=== PATIENT | female | born 2000 | race Caucasian/White ===

== ENCOUNTER 2020-12-29 13:32 | Emergency (ER) | payer BC, SELFPAY ==
--- NOTE | 2020-12-29 13:41 | ED.FEMALEGU ---
HPI - Female Genitourinary General Chief complaint: Urogenital-Female Stated complaint: sharp pains on lower right and painful urination Time Seen by Provider: 12/29/20 13:43 Source: patient and RN notes reviewed Mode of arrival: ambulatory Limitations: no limitations History of Present Illness HPI Narrative: 20-year-old female presents with concern for suprapubic discomfort, frequent urination, intermittent difficulty urinating. She reports symptoms have been present for 1 week. She denies nausea, vomiting, burning with urination, urgency, fever, changes in appetite, abnormal vaginal discharge or bleeding, pain with sex. She reports her menstrual period is due soon , she is uncertain of dates. Reports there is a chance she could be , denies any concern for STDs. Reports she had a medical 6 months ago, had a follow-up which was normal. MD elicited complaint: UTI Related Data Home Medications Medication Instructions Recorded Confirmed [id number] tablet PO 12/29/20 [] Allergies Allergy/AdvReac Type Severity Reaction Status Date / Time anesthesia AdvReac Mild Nausea and Uncoded 03/24/19 20:10 Vomiting Review of Systems Review of Systems: Narrative: CONSTITUTIONAL: Denies malaise, chills, sweats, or fever. CARDIOVASCULAR: Denies chest pain, palpitations, or edema. RESPIRATORY: Denies cough or dyspnea. GASTROINTESTINAL: Denies abdominal pain, nausea, vomiting, diarrhea, bloody, or mucous stools. GENITOURINARY: Denies dysuria or hematuria. Reports suprapubic discomfort, urine frequency, difficulty urinating SKIN: Denies rash or itching. MUSCULOSKELETAL: Denies back pain, joint pain, or myalgia. All systems reviewed & are unremarkable except as noted in HPI and below PMFSH Comments At time of signature, agree with nursing past medical, surgical, social and family history. There is no relevant family history pertinent to the presenting complaint Exam Narrative: Exam Narrative: GENERAL: Well-appearing, well-nourished, and in no acute distress. HEAD: Normocephalic. EYES: PERRLA, conjunctivae clear. NECK: Supple. No lymphadenopathy CHEST: Clear to auscultation. No respiratory distress. HEART: Regular rate and rhythm. ABDOMEN: Soft, nontender upon palpation, nondistended, normal active bowel sounds, no palpable or pulsatile masses, no guarding. No CVA tenderness SKIN: Warm, dry, no rash. NEURO: Alert and oriented x3. PSYCH: Normal mood and affect Course Course Emergency Course: Patient is aware of diagnosis, understands and agrees to treatment plan. Anticipatory guidance given. Patient agrees to follow-up as directed and is aware of reasons to seek care at the emergency department. Portions of this record may have been created with voice recognition software Vital Signs Vital signs: Vital Signs Temperature 98.6 F 12/29/20 13:44 Pulse Rate 105 H 12/29/20 13:44 Respiratory Rate 18 12/29/20 13:44 Blood Pressure 132/70 12/29/20 13:44 Pulse Oximetry 100 12/29/20 13:44 Temperature 98.6 F 12/29/20 13:44 Pulse Rate 105 H 12/29/20 13:44 Respiratory Rate 18 12/29/20 13:44 Blood Pressure 132/70 12/29/20 13:44 Pulse Oximetry 100 12/29/20 13:44 Reviewed. MDM - Female Genitourinary MDM Narrative Medical decision making narrative: Exam findings and UA show no acute concerns or changes; patient is non-toxic appearing and is in no distress. Patient is appropriate for outpatient treatment and follow-up. Differential Diagnosis Differential diagnosis: Likely urinary tract infection, trichomoniasis, cervicitis, vaginitis, dysmenorrhea and other (Mittelschmerz, acute abdomen, endometriosis) Lab Data Labs: Urine Glucose Negative Reference Range: Negative Urine Bilirubin Negative Reference Range: Negative Urine Ketone
[2020-12-29 13:44] VITALS: BP 132/70; PULSE 105; RESP 18; TEMP 37; O2SAT 100
== END 2020-12-29 14:16 | disposition home or self-care (01) ==
PROVIDERS: Emergency Provider Nurse Practitioner
DX: R10.30 Lower abdominal pain, unspecified (principal)
CPT/HCPCS: 81003; 81025; 87086; 99213; G0463

== ENCOUNTER 2021-06-14 13:27 | Emergency (ER) | payer BC, SELFPAY ==
[2021-06-14 13:34] VITALS: BP 123/78; PULSE 98; RESP 16; TEMP 36.6; O2SAT 99
--- NOTE | 2021-06-14 13:34 | ED.GENADULT ---
HPI - General Adult General Chief complaint: Urogenital-Female Stated complaint: Left Breast is swollen Time Seen by Provider: 06/14/21 13:38 Source: patient and RN notes reviewed Mode of arrival: ambulatory Limitations: no limitations History of Present Illness HPI narrative: 21-year-old female presents concern for swelling and tenderness in the left breast. Reports she is currently breast-feeding her child. Reports symptoms started 2 days ago, she has tried warm compresses without relief. She reports general malaise. Denies fever or body aches. Denies purulent drainage from the breast. complaint: Swollen breast Related Data Home Medications Medication Instructions Recorded Confirmed [id number]-fal-[id number]-FA 1 tablet PO DAILY 12/29/20 06/14/21 [] Allergies Allergy/AdvReac Type Severity Reaction Status Date / Time anesthesia AdvReac Mild Nausea and Uncoded 06/14/21 13:40 Vomiting Review of Systems Review of Systems: CONSTITUTIONAL: Reports malaise. Denies chills, sweats, or fever. SKIN: Reports warm, tender skin in the left breast MUSCULOSKELETAL: Denies myalgia. NEUROLOGIC: Reports headache. All systems reviewed & are unremarkable except as noted in HPI and below PMFSH Comments At time of signature, agree with nursing past medical, surgical, social and family history. There is no relevant family history pertinent to the presenting complaint Exam Narrative: GENERAL: Well-appearing, well-nourished, and in no acute distress. HEAD: Normocephalic EYES: PERRLA, conjunctivae clear ENT: Mucous membranes moist. NECK: Supple. No lymphadenopathy. CHEST: No respiratory distress. Speaks in full sentences. HEART: Regular rate and rhythm. SKIN: Warm, dry, no rash. Left breast has 7 cm area of erythema, warmth, induration not involving the nipple NEURO: Alert and oriented x3. PSYCH: Normal mood and affect Course Course Emergency Course: Patient is aware of diagnosis, understands and agrees to treatment plan. Anticipatory guidance given. Patient agrees to follow-up as directed and is aware of reasons to seek care at the emergency department. Portions of this record may have been created with voice recognition software Vital Signs Vital signs: Reviewed. Medical Decision Making MDM Narrative Medical decision making narrative: Exam findings show no acute concerns or changes; patient is non-toxic appearing and is in no distress. Patient is appropriate for outpatient treatment and follow-up. Critical Care Time Critical Care Time Critical Care Time: No Discharge Plan Discharge Clinical Impression: Mastitis Patient Disposition: Home, Self-Care Condition: Stable Instructions: Antibiotic Form, Mastitis (ED) Additional Instructions: Please follow up with your Primary Care Doctor within 48-72 hours - call for an appointment. Rest and elevate affected area; apply moist heat 3-4 times daily for 10-15 minutes. Take Motrin 600mg every 8 hours with food for pain. Please take Antibiotics as directed. If you experience any worsening redness, swelling, streaking (red lines), fever or chills please go to the ER Prescriptions: New cephalexin 500 mg capsule 500 mg PO QID 10 Days Qty: 40 RF: 0 No Action 1 mg Tablet 1 tablet PO DAILY RF: 0 Follow-up/Referrals: PHYSICIAN,BETTING CLERK [Primary Care Provider] - Time of Disposition: 13:48
== END 2021-06-14 13:50 | disposition home or self-care (01) ==
PROVIDERS: Emergency Provider Nurse Practitioner
DX: N61.0 Mastitis without abscess (principal)
CPT/HCPCS: 99213; G0463

== ENCOUNTER 2021-11-18 15:48 | Emergency (ER) | payer OTHER, SELFPAY ==
--- NOTE | 2021-11-18 15:52 | ED.NAVMDI ---
HPI - Nausea/Vomiting/Diarrhea General Chief complaint: Nausea/Vomiting/Diarrhea Stated complaint: Diarrhea/Vomiting Time Seen by Provider: 11/18/21 15:52 Source: patient and RN notes reviewed History of Present Illness HPI Narrative: Patient is a 21-year-old female who presents the urgent care with complaints of diarrhea and vomiting for the last 3 weeks. Patient states that it only occurs in the mornings and seems to resolve throughout the day. Patient denies of any fevers. Currently denies of any abdominal pain or nausea. Denies any urinary symptoms. Patient has not taken anything [id number]-[id number] for her symptoms. Patient has not tried diet change. No other acute complaints. No acute distress noted. Patient had a plan of care. Some parts of this dictation were generated by voice recognition software and may contain typographical and/or grammatical inaccuracies. Related Data Allergies Allergy/AdvReac Type Severity Reaction Status Date / Time anesthesia AdvReac Mild Nausea and Uncoded 11/18/21 16:03 Vomiting Review of Systems Review of Systems: CONSTITUTIONAL: Denies fever, chills, or sweats. EYES: Denies visual changes, redness, or discharge. ENT: Denies rhinorrhea, congestion, sore throat, or otalgia. CARDIOVASCULAR: Denies chest pain, palpitations, or edema. RESPIRATORY: Denies cough or dyspnea. GASTROINTESTINAL: Reports of nausea, vomiting and diarrhea GENITOURINARY: Denies dysuria or hematuria. SKIN: Denies rash or itching. MUSCULOSKELETAL: Denies back pain, joint pain, or myalgia. NEUROLOGIC: Denies headache, numbness, or weakness. All other systems reviewed are negative, except as documented in HPI. PMFSH Comments At the time of my signature, I reviewed and agree with the nursing past medical, surgical, social, and family history. There is no relevant family history pertinent to the patient complaint. Exam Narrative: GENERAL: This is a well-nourished, well-developed patient, in no apparent distress. HEAD: normocephalic, atraumatic. EYES: PERRL. Sclera clear/white. Vision is grossly intact. EARS: External ears normal, auditory canals clear and without drainage, TMs normal without perforation. Hearing grossly intact. NOSE: External nose normal with no obvious nasal discharge, nares without redness, no rhinorrhea. THROAT: Mucous membranes moist, posterior pharynx clear. NECK: Neck supple CARDIOVASCULAR: Regular rate and rhythm without murmurs, gallops, or rubs. RESPIRATORY: Clear to auscultation. Breath sounds equal bilaterally. No wheezes, rales, or rhonchi. GASTROINTESTINAL: Abdomen soft, mild diffuse tenderness, nondistended. Bowel sounds are active. No hepato-splenomegaly, or palpable masses. No guarding. SKIN: warm, intact with no suspicious lesions or rash, good texture and turgor. NEURO: awake, alert, and oriented to person, place and time. There were no obvious focal neurologic abnormalities. EXTREMITIES: No clubbing, cyanosis, or edema. No joint tenderness, effusion, or edema noted. No calf tenderness. Course Course Level of Care: Express Care Visit Vital Signs Vital signs: Vital Signs Temperature 98.0 F 11/18/21 15:54 Pulse Rate 100 11/18/21 15:54 Respiratory Rate 16 11/18/21 15:54 Blood Pressure 130/70 11/18/21 15:54 Pulse Oximetry 100 11/18/21 15:54 Temperature 98.0 F 11/18/21 15:54 Pulse Rate 100 11/18/21 15:54 Respiratory Rate 16 11/18/21 15:54 Blood Pressure 130/70 11/18/21 15:54 Pulse Oximetry 100 11/18/21 15:54 Reviewed MDM - Nausea/Vomiting/Diarrhea MDM Narrative Medical decision making narrative: Advised the patient to follow-up with her primary care doctor regarding her chronic symptoms of diarrhea and vomiting. May need further work-up with imaging and lab work which our facility is unable to provide. Advised the patient to eat a bland diet and increase her water intake. Avoid eating prior to bedtime at least 1 to 2 hours. Limit dairy products
[2021-11-18 15:54] VITALS: BP 130/70; PULSE 100; RESP 16; TEMP 36.7; O2SAT 100
== END 2021-11-18 16:28 | disposition home or self-care (01) ==
PROVIDERS: Emergency Provider Nurse Practitioner Family
DX: R11.2 Nausea with vomiting, unspecified (principal); J45.909 Unspecified asthma, uncomplicated
CPT/HCPCS: 99213; G0463

== ENCOUNTER 2022-01-12 14:09 | Emergency (ER) | payer OTHER, SELFPAY ==
[2022-01-12 14:17] VITALS: BP 123/68; PULSE 107; RESP 20; TEMP 36.7; O2SAT 100
--- NOTE | 2022-01-12 14:36 | ED.FEMALEGU ---
HPI - Female Genitourinary General Chief complaint: Urogenital-Female Stated complaint: vaginal irritation Time Seen by Provider: 01/12/22 14:26 Source: patient and RN notes reviewed Mode of arrival: ambulatory Limitations: no limitations History of Present Illness HPI Narrative: 21-year-old female presented for complaint of vaginal irritation for about 3 days. Endorses itching, redness, and stringy yellow vaginal discharge. Endorses burning with urination, states it feels like it is because of skin irritation and one episode of vomiting today. States she does not think it is Yeast infection, and is concerned for STD. Denies hematuria, diarrhea, constipation, cough, shortness of breath, fever or chills .she has used Monistat for 1 day for symptoms without relief. LMP end of November. Related Data Home Medications Medication Instructions Recorded Confirmed hydrocodone-acetaminophen 1 tablet DIRECTED 01/12/22 01/12/22 Allergies Allergy/AdvReac Type Severity Reaction Status Date / Time anesthesia AdvReac Mild Nausea and Uncoded 11/18/21 16:03 Vomiting Review of Systems Review of Systems: CONSTITUTIONAL: Denies body aches, fever, chills, or sweats. CARDIOVASCULAR: Denies chest pain, palpitations, or edema. RESPIRATORY: Denies cough or dyspnea. GASTROINTESTINAL: Denies abdominal pain, nausea, vomiting, or diarrhea. GENITOURINARY: Reports vaginal discharge, itching; Denies frequency, urgency, hematuria, flank pain SKIN: Denies rash, itching, or wounds. MUSCULOSKELETAL: Denies back pain or myalgia. PMFSH Comments At time of signature, I have reviewed and agree with nursing past medical, surgical, social and family history unless otherwise noted. Please see nursing chart for further information. There is no relevant family history pertinent to the presenting complaint Exam Narrative: GENERAL: Well-appearing and in no acute distress. HEAD: Normocephalic EYES: EOMI. ENT: Mucous membranes pink and moist. NECK: Normal AROM. Supple. CHEST: No respiratory distress. Clear to auscultation. HEART: Regular rate and rhythm. ABDOMEN: Soft, nontender, nondistended, normal active bowel sounds. No CVA tenderness : Pt declined exam MUSCULOSKELETAL: No bony tenderness. SKIN: Warm, dry, no rash. NEURO: No focal deficits. Alert and oriented x3. Gait steady. PSYCH: Normal affect. No signs of depression or anxiety. Course Course Emergency Course: Patient is aware of diagnosis, understands and agrees to treatment plan. Anticipatory guidance given. Patient agrees to follow-up as directed OBGYN list provided; pt is aware of reasons to seek care at the emergency department. Portions of this record may have been created with voice recognition software Level of Care: Express Care Visit Vital Signs Vital signs: Vital Signs Temperature 98.1 F 01/12/22 14:17 Pulse Rate 107 H 01/12/22 14:17 Respiratory Rate 20 01/12/22 14:17 Blood Pressure 123/68 01/12/22 14:17 Pulse Oximetry 100 01/12/22 14:17 Temperature 98.1 F 01/12/22 14:17 Pulse Rate 107 H 01/12/22 14:17 Respiratory Rate 20 01/12/22 14:17 Blood Pressure 123/68 01/12/22 14:17 Pulse Oximetry 100 01/12/22 14:17 Reviewed MDM - Female Genitourinary MDM Narrative Medical decision making narrative: Patient presenting with concern for STD. Urine specimen collected for GC, chlamydia, trich. Informed Pt will be contacted w/ results when they become available if they are positive. Discussed with patient that it takes up to 7 days for results of cultures to be released and explained that we may treat empirically at this time for GC and chlamydia. Agreeable to treatment at this time. Urine shows Leuk 2+, will hold off treatment for uti at this time until the cx is resulted. I have instructed the patient to return to the ER at any time if there are any new or worsening symptoms. The patient expressed understanding of and agreement with this
[2022-01-12] MEDS: cefTRIAXone 500 MG, LIDOCAINE HCL 1% LOCAL INJ 1 ML IM (15:13)
== END 2022-01-12 15:43 | disposition home or self-care (01) ==
PROVIDERS: Emergency Provider Nurse Practitioner Family
DX: Z20.2 Contact with and (suspected) exposure to infections with a predominantly sexual mode of transmission (principal); Z32.01 Encounter for pregnancy test, result positive
CPT/HCPCS: 81003; 81025; 87086; 87491; 87591; 87661; 96372; 99214; G0463; J0696